=== PATIENT | female | born 1980 | race Caucasian/White ===

== ENCOUNTER 2016-08-07 09:00 | Emergency (ER) | payer OTHER ==
[2016-08-07 09:48] VITALS: BP 110/64
--- NOTE | 2016-08-07 10:23 | UC ---
Throat Pain/Nasal Xavier HPI - HPI Summary HPI Summary: complaint of cough, nasal congestion sneezing that started 3 days ago sinus pressure sore throat non productive cough more coughing and wheezing at night denies fever chills and ear pain and rash denies N/V/D, myalgias using dayquil with robitussin without relief hasn't used albuterol inhaler during this illness not taking normal medications d/t sickness - History of Current Complaint Chief Complaint: UCGeneralIllness Stated Complaint: COUGH,CONGEST,SINUS Time Seen by Provider: 08/07/16 10:18 Hx Obtained From: Patient Hx Last Menstrual Period: IUD - Allergies/Home Medications Allergies/Adverse Reactions: Allergies Allergy/AdvReac Type Severity Reaction Status Date / Time Penicillins Allergy Unknown Unknown Verified 08/07/16 09:36 Reaction Details Home Medications: Home Medications Dextromethorphan-Phenylephrine [Vicks Dayquil Cold & Flu 10-5-325 mg] 2 tab PO PRN 08/07/16 [History] GuaiFENesin DM* [Robitussin DM*] 10 ml PO PRN 08/07/16 [History] Meloxicam [Mobic] 25 mg PO BID 08/07/16 [History Confirmed 08/07/16] PMH/Surg Hx/FS Hx/Imm Hx Previously Healthy: Yes Endocrine History Of: Denies: Diabetes, Thyroid Disease Cardiovascular History Of: Denies: Cardiac Disorders, Hypertension, Pacemaker/ICD, Congestive Heart Failure Respiratory History Of: Reports: Asthma - Exercise Induced Denies: COPD GI/ History Of: Denies: Ulcer, Renal Disease Psychological History Of: Reports: Depression - Surgical History Surgical History: Yes Surgery Procedure, Year, and Place: cervical cone biopsy. tubal ligation. 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, TOPAMAX, CELEBREX Smoking Status (MU): Heavy Every Day Tobacco Smoker Type: Cigarettes Amount Used/How Often: 1/2 PPD Have You Smoked in the Last Year: Yes Household Exposure Type: Cigarettes Cessation Counseling: Patient Advised to Stop - Immunization History Most Recent Influenza Vaccination: no Review of Systems Constitutional: Negative Skin: Negative Eyes: Negative ENT: Sore Throat, Nasal Discharge Respiratory: Cough Cardiovascular: Negative Gastrointestinal: Negative Genitourinary: Negative Motor: Negative Neurovascular: Negative Musculoskeletal: Negative Neurological: Negative Psychological: Negative All Other Systems Reviewed And Are Negative: Yes Physical Exam Triage Information Reviewed: Yes Appearance: No Pain Distress, Well-Nourished, Thin Vital Signs: Initial Vital Signs Temp 98.9 F 08/07/16 09:41 Pulse 74 08/07/16 09:41 Resp 20 08/07/16 09:41 BP 110/64 08/07/16 09:41 Pulse Ox 99 08/07/16 09:41 Vital Signs Reviewed: Yes Eyes: Positive: Conjunctiva Clear ENT: Positive: Pharyngeal erythema, Nasal congestion, Nasal drainage, TMs normal. Negative: Tonsillar swelling, Tonsillar exudate Neck: Positive: No Lymphadenopathy Respiratory: Positive: Rhonchi - RLL, Wheezing. Negative: No respiratory distress, No accessory muscle use Cardiovascular: Positive: RRR, No Murmur, Pulses Normal Abdomen Description: Positive: Nontender, Soft Bowel Sounds: Positive: Present Musculoskeletal Exam: Normal Neurological: Positive: Alert Psychological Exam: Normal Skin Exam: Normal Re-Evaluation - Re-Evaluation First Eval Re-Evaluation Time: 10:53 Change: Improved Comment: less wheezing - increased air movement throughout all lung frost Throat Pain/Nasal Course/Dx - Differential Dx/Diagnosis Differential Diagnosis/HQI/PQRI: Laryngitis, Pharyngitis, URI Provider Diagnoses: asthma exacerbation Discharge - Discharge Plan Condition: Stable Disposition: HOME Prescriptions: Albuterol HFA INHALER* [Ventolin HFA Inhaler*] 2 puff INH Q4H PRN #1 mdi PRN Reason: Wheezing Azithromycin TAB* [Zithromax TAB (Z-PASCUAL) 250 mg #6 tabs] 2 tab PO .TODAY, THEN 1 DAILY #1 pascual predniSONE TAB* [Deltasone TAB*] 50 mg PO DAILY #5 tab Patient Education Materials: Asthma (ED), How to Stop Smoking (ED) Forms: *Work Release Referrals: Vitor Klein MD [Primary Care Provider] - Additional Instructions: Please take antibiotic as directed Use your albuterol inhaler every 4-6 hours when needed for wheezing, shortness of breath or uncontrolled coughing. Increase fluids and rest Take acetaminophen or ibuprofen for fever or pain Please review your discharge instructions. If your symptoms do not improve please call your primary care provider or return to urgent care.
[2016-08-07] MEDS ORDERED: Albuterol/Ipratropium NEB.SOL* Albuterol 2.5 MG/Ipratropium 0.5 MG 3 ML INH ONE (10:25)
== END 2016-08-07 11:08 | disposition home or self-care (01) ==
LOC: UCEAST 09:00
DX: J45.901 Unspecified asthma with (acute) exacerbation (principal); Z88.0 Allergy status to penicillin; F17.210 Nicotine dependence, cigarettes, uncomplicated
CPT/HCPCS: 99212; A9270-GY; G0463

== ENCOUNTER 2016-08-10 08:05 | Emergency (ER) | payer OTHER ==
[2016-08-10] MEDS ORDERED: Albuterol 2.5 MG/3 ML NEB.SOL* (0.083%) INH ONE (08:09)
[2016-08-10] MEDS ORDERED: Ipratropium 0.5MG/2.5ML NEB* 0.5 MG/2.5 ML NEB.SOLN INH ONE (08:09)
[2016-08-10 08:11] VITALS: BP 126/73
--- NOTE | 2016-08-10 09:58 | RAD ---
INDICATION: Chest pain after coughing. Dry cough for one week. Exercise-induced asthma. Tobacco use. COMPARISON: February 12, 2016 CT abdomen. TECHNIQUE: Dual energy PA and routine lateral views of the chest were obtained. REPORT: Elevated lung volumes. No alveolar consolidation, focal pulmonary lesion, pleural effusion, pneumothorax. The heart, pulmonary vasculature, and mediastinal contours are unremarkable. Unremarkable soft tissue contours and osseous structures. IMPRESSION: Elevated lung volumes suggest obstructive lung disease. No acute cardiopulmonary process evident.
--- NOTE | 2016-08-10 15:40 | UC ---
dilma Lyon Timothy, scribed for Eleonora Marvin DO on 08/10/16 at 0823 . Respiratory Complaint HPI - HPI Summary HPI Summary: Cleo Gallegos is a 36 yo female presenting to [facility] with cough and SOB since 08/04/16. She was seen 08/07/16 for asthma and bronchitis, and placed on a Z-pack, prednisone, robitussin and albuterol inhaler. Pt presents today with no improvement. She states her Sx have been worsening, and she has been unable to sleep due to coughing. She denies fever. Her Hx includes exercise induced asthma , depression, substance use, tobacco use. - History of Current Complaint Stated Complaint: COUGH,TROUBLE BREATHING Time Seen by Provider: 08/10/16 08:09 Hx Obtained From: Patient Hx Last Menstrual Period: murena Onset/Duration: Gradual Onset, Lasting Days, Still Present Timing: Constant Severity Initially: Moderate Severity Currently: Moderate Character: Cough: Nonproductive Aggravating Factors: Nothing Alleviating Factors: Nothing Associated Signs And Symptoms: Positive: Dyspnea, Wheezing. Negative: Fever, Pleuritic Chest Pain, Dizziness - Allergies/Home Medications Allergies/Adverse Reactions: Allergies Allergy/AdvReac Type Severity Reaction Status Date / Time Penicillins Allergy Unknown Unknown Verified 08/10/16 08:11 Reaction Details PMH/Surg Hx/FS Hx/Imm Hx Endocrine History Of: Denies: Diabetes, Thyroid Disease Cardiovascular History Of: Denies: Cardiac Disorders, Hypertension, Pacemaker/ICD, Congestive Heart Failure Respiratory History Of: Reports: Asthma - Exercise Induced Denies: COPD GI/ History Of: Denies: Ulcer, Renal Disease Psychological History Of: Reports: Depression - Surgical History Surgical History: Yes Surgery Procedure, Year, and Place: cervical cone biopsy. tubal ligation. 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 @ [employer] Alcohol Use: Rare Substance Use Type: None Substance Use Comment - Amount & Last Used: FROM PAIN MGT-MUSCLE RELAXER, TOPAMAX, CELEBREX Smoking Status (MU): Heavy Every Day Tobacco Smoker Type: Cigarettes Amount Used/How Often: 1/2 PPD Have You Smoked in the Last Year: Yes Household Exposure Type: Cigarettes Cessation Counseling: Counseled 3+Min - 10 Min - Immunization History Most Recent Influenza Vaccination: no Review of Systems Constitutional: Negative Skin: Negative Eyes: Negative ENT: Negative Respiratory: Shortness Of Breath, Cough Cardiovascular: Negative Gastrointestinal: Negative Genitourinary: Negative Motor: Negative Neurovascular: Negative Musculoskeletal: Negative Neurological: Negative Psychological: Negative All Other Systems Reviewed And Are Negative: Yes Physical Exam Triage Information Reviewed: Yes Appearance: Well-Appearing, No Pain Distress, Well-Nourished Vital Signs: Initial Vital Signs Temp 98.2 F 08/10/16 08:08 Pulse 79 08/10/16 08:08 Resp 20 08/10/16 08:08 BP 126/73 08/10/16 08:08 Pulse Ox 99 08/10/16 08:08 Vital Signs Reviewed: Yes Eye Exam: Normal Eyes: Positive: Conjunctiva Clear. Negative: Discharge ENT Exam: Normal ENT: Positive: Hearing grossly normal, Pharynx normal, TMs normal, Muffled/ hoarse voice. Negative: Pharyngeal erythema, Tonsillar swelling, Tonsillar exudate Neck: Positive: Supple, Nontender Respiratory: Positive: No accessory muscle use, Respiratory distress - mild, Wheezing - diffuse, all frost Cardiovascular: Positive: RRR, No Murmur Musculoskeletal Exam: Normal Neurological: Positive: Alert, Muscle Tone Normal Psychological Exam: Normal Psychological: Positive: Age Appropriate Behavior Skin Exam: Normal UC Diagnostic Evaluation - Laboratory O2 Sat by Pulse Oximetry: 99 - Radiology Xray Interpretation: No Acute Changes - Elevated lung volumes suggest obstructive lung disease. No acute cardiopulmonary process evident. Radiology Interpretation Completed By: Radiologist Re-Evaluation - Re-Evaluation First Eval Re-Evaluation Time: 10:30 Change: Improved Comment: Wheezing improved after nebulizer Tx. Respiratory Course/Dx - Course Course Of Treatment: Cleo Gallegos is a 36 yo female presenting to [facility] with SOB and cough after appearing 08/07/16 and receiving Rx for prednisone, Z-pack, robitussin, and albuterol inhaler. After clinical examination and review of her CXR indicating no acute results, Pt was counseled to stop smoking and will receive instructions on bronchitis and will be discharged. - Differential Dx/Diagnosis Differential Diagnosis/HQI/PQRI: Asthma, Bronchitis, Exacerbation Of COPD, Other - emphysema, COPD Provider Diagnoses: bronchitis Discharge - Discharge Plan Condition: Stable Disposition: HOME Prescriptions: Albuterol/Ipratropium NEB.SHERI* [Duoneb NEB.SHERI*] 1 neb INH Q4H PRN #1 box PRN Reason: Sob/Wheezing Respiratory Therapy Supplies [Nebulizer Kit/Tubing/Mout] 1 kit .SEE ORDER . DIRECTED #1 kit guaiFENesin ER TAB [Mucinex*] 600 mg PO BID PRN #1 box PRN Reason: Cough guaiFENesin/CODIEN 100MG-10MG* [Robitussin AC 100Mg-10Mg*] 5 - 10 ml PO BEDTIME PRN #100 udc MDD 10ml PRN Reason: Cough predniSONE TAB* [Deltasone TAB*] 10 mg PO DAILY #24 tab Patient Education Materials: Prednisone (By mouth), How to Stop Smoking (ED), Cigarette Smoking and Your Health (GEN), How to Use a Nebulizer (ED) Referrals: Vitor Klein MD [Primary Care Provider] - (FOLLOW UP IN 3-5 DAYS) Additional Instructions: INHALED BRONCHODILATORS:USE EVERY 4 HOURS WHILE AWAKE You have received a prescription for an inhaled bronchodilator -- a medication which stimulates the airways in the lung to dilate. This improves the flow of air in asthma, bronchitis, and emphysema. These medicines have some similarity to adrenaline, and can cause similar side effects: shakiness, racing heart, and a sense of nervousness. These side effects decrease with time. Contact your doctor if these side effects are severe. Do not over-use the medicine. Too-frequent use of the inhaler may make it ineffective. Call your doctor if the inhaler is not controlling your symptoms at the prescribed doses. COUGH-SUPPRESSANT & EXPECTORANT MEDICATION: You are to use a cough medication as needed for relief of symptoms. This medicine is a combination of an expectorant (to make the mucous thinner and more easily "coughed up") and a cough suppressant (to reduce the frequency of coughing). The cough-suppressant medicine is related to narcotics. You may experience mild nausea and sleepiness. Some patients who are very sensitive to narcotics may have stomach pain from this medicine. Taking the medicine with food reduces these side effects. Do not drive or work with machinery until you know how this medicine affects you. The expectorant should have no side effects. Iodine-containing expectorants (such as organidin) should not be taken by persons with active thyroid disease unless approved by your doctor. Call the doctor if you develop shortness of breath, hives, rash, itching, lightheadedness, or severe nausea and vomiting. EXPECTORANT MEDICATION: An expectorant medicine has been prescribed. This type of drug makes mucous thinner, helping the sinuses, nose, and bronchial tubes to remain free of pus and mucous. Expectorants make a cough less severe and more comfortable, and help infected sinuses drain. In general, antihistamines defeat the purpose of the expectorant by making mucous thicker. They should be avoided unless specifically recommended by your physician. CORTICOSTEROID MEDICATION: You have been given a medicine of the cortisone class. This medication is used to control inflammation or allergy. It is usually only given for a short period of time, until the acute process subsides. There are usually no side effects from short-term use of cortisone-like medications. Some persons feel an increased sense of well-being and are not sleepy at bedtime. Long-term use of cortisone medications is best avoided, unless required for a severe condition. If your condition does not remit, or relapses after the course of corticosteroid medication, you should consult your physician. Contact the physician if you develop lightheadedness, black or tarry stools , swelling of the legs, or significant rapid change in weight. The documentation as recorded by the dilma dia Timothy accurately reflects the service I personally performed and the decisions made by me, Eleonora Marvin DO.
== END 2016-08-10 10:44 | disposition home or self-care (01) ==
LOC: UCEAST 08:05
DX: J40 Bronchitis, not specified as acute or chronic (principal); Z88.0 Allergy status to penicillin; F17.210 Nicotine dependence, cigarettes, uncomplicated; Z71.6 Tobacco abuse counseling
CPT/HCPCS: 71020; 99212; G0463; J7644

== ENCOUNTER 2016-10-17 13:57 | Emergency (ER) | payer OTHER ==
[2016-10-17 14:07] VITALS: BP 112/52
--- NOTE | 2016-10-17 14:20 | UC ---
Camron, DoctorKristina, scribed for Abhijeet Billingsley MD on 10/17/16 at 1418 . Ear Complaint HPI - HPI Summary HPI Summary: 36 year old female arrived to [facility] c/o left ear pain beginning last night after cleaning her ear. She describes some bleeding at onset, but no bleeding since then. Pt also denies any rhinorrhea, sore throat, or changes to her hearing. She suffers from chronic pain due to dx of Degenerative Disc Disease, but denies any other pertinent PMHx. - History of Current Complaint Chief Complaint: UCEar Stated Complaint: EAR COMPLAINT Time Seen by Provider: 10/17/16 14:08 Hx Obtained From: Patient Hx Last Menstrual Period: 2 months ago Onset/Duration: Gradual Onset, Lasting Hours - since last night Severity Initially: Moderate Severity Currently: Moderate Associated Signs/Symptoms: Negative: Hearing Loss - Allergies/Home Medications Allergies/Adverse Reactions: Allergies Allergy/AdvReac Type Severity Reaction Status Date / Time Penicillins Allergy Unknown Unknown Verified 10/17/16 14:08 Reaction Details PMH/Surg Hx/FS Hx/Imm Hx Endocrine History Of: Denies: Diabetes, Thyroid Disease Cardiovascular History Of: Denies: Cardiac Disorders, Hypertension, Pacemaker/ICD, Congestive Heart Failure Respiratory History Of: Reports: Asthma - Exercise Induced Denies: COPD GI/ History Of: Denies: Ulcer, Renal Disease Psychological History Of: Reports: Depression - Surgical History Surgical History: Yes Surgery Procedure, Year, and Place: cervical cone biopsy. tubal ligation. 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, TOPAMAX, CELEBREX Smoking Status (MU): Current Every Day Smoker Type: Cigarettes Amount Used/How Often: 1/2 PPD Have You Smoked in the Last Year: Yes Household Exposure Type: Cigarettes - Immunization History Most Recent Influenza Vaccination: no Review of Systems Constitutional: Negative - fever ENT: Negative - rhinorrhea, sore throat, changes to hearing, Ear Ache - left ear pain All Other Systems Reviewed And Are Negative: Yes Physical Exam Triage Information Reviewed: Yes Appearance: Well-Appearing, No Pain Distress Vital Signs: Initial Vital Signs Temp 97.3 F 04/22/17 14:04 Pulse 53 10/17/16 14:04 Resp 18 10/17/16 14:04 BP 112/52 10/17/16 14:04 Pulse Ox 98 10/17/16 14:04 Vital Signs Reviewed: Yes Eyes: Positive: Conjunctiva Clear ENT: Positive: TMs normal - Left TM Intact, some dried blood on the floor of the TM Neck: Positive: Supple, Nontender Respiratory: Positive: Lungs clear, Normal breath sounds Cardiovascular: Positive: RRR Abdomen Description: Positive: Nontender, Soft Musculoskeletal: Positive: Strength Intact, ROM Intact Neurological Exam: Normal Psychological Exam: Normal Ear Complaint Course/Dx - Course Course Of Treatment: DISCUSSED RESULTS WITH PATIENT. RX CORTISPORIN OTIC. F/U WITH PMD. STABLE IN ED. - Differential Dx/Diagnosis Provider Diagnoses: LEFT EAR CANAL INJURY WITH TM APPEARING INTACT ON EXAM Discharge - Discharge Plan Condition: Stable Disposition: HOME Prescriptions: Neomyc/Polym/HC 1% OTIC SUSP* [Cortisporin Otic Susp 1%*] 4 drop LEFT EAR QID # 1 btl Patient Education Materials: Otitis Externa (ED), Barotrauma (ED) Referrals: Vitor Klein MD [Primary Care Provider] - Additional Instructions: FOLLOW UP WITH YOUR DOCTOR. RETURN TO THE EMERGENCY DEPARTMENT FOR ANY WORSENING OF YOUR CONDITION; PAIN, FEVER, YOU FEEL ILL OR QUESTIONS OR CONCERNS. The documentation as recorded by the Doctor dia Tahera accurately reflects the service I personally performed and the decisions made by me, Abhijeet Billingsley MD.
== END 2016-10-17 14:22 | disposition home or self-care (01) ==
LOC: UCEAST 13:57
DX: S09.91XA Unspecified injury of ear, initial encounter (principal); X58.XXXA Exposure to other specified factors, initial encounter; J45.990 Exercise induced bronchospasm; F32.9 Major depressive disorder, single episode, unspecified; F17.210 Nicotine dependence, cigarettes, uncomplicated; Z88.0 Allergy status to penicillin; G89.29 Other chronic pain
CPT/HCPCS: 99212; G0463

== ENCOUNTER 2016-11-19 10:42 | Emergency (ER) | payer OTHER ==
[2016-11-19 11:18] VITALS: BP 138/76
--- NOTE | 2016-11-19 11:33 | UC ---
Complaint Female HPI - HPI Summary HPI Summary: Urinary pain urgency frequency burning for 2 days for fevers, back pain, nausea or vomiting - History Of Current Complaint Chief Complaint: UCGU Stated Complaint: URINARY ISSUE Time Seen by Provider: 11/19/16 11:28 Hx Obtained From: Patient Hx Last Menstrual Period: tubal , mirana ?: No Onset/Duration: Sudden Onset - 2, Still Present Timing: Constant Severity Initially: Moderate Severity Currently: Moderate Pain Intensity: 6 Pain Scale Used: 0-10 Numeric Character: Burning Aggravating Factor(s): Urination Alleviating Factor(s): Nothing Associated Signs And Symptoms: Positive: Vaginal Bleeding/Discharge - "spotting right now" - Allergies/Home Medications Allergies/Adverse Reactions: Allergies Allergy/AdvReac Type Severity Reaction Status Date / Time Penicillins Allergy Unknown Unknown Verified 11/09/16 08:44 Reaction Details PMH/Surg Hx/FS Hx/Imm Hx Previously Healthy: No Endocrine History Of: Denies: Diabetes, Thyroid Disease Cardiovascular History Of: Denies: Cardiac Disorders, Hypertension, Pacemaker/ICD, Congestive Heart Failure Respiratory History Of: Reports: Asthma - Exercise Induced Denies: COPD GI/ History Of: Denies: Ulcer, Renal Disease Psychological History Of: Reports: Depression - Surgical History Surgical History: Yes Surgery Procedure, Year, and Place: cervical cone biopsy. tubal ligation. 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, TOPAMAX, CELEBREX Smoking Status (MU): Light Every Day Tobacco Smoker Type: Cigarettes Amount Used/How Often: 1/2 PPD Have You Smoked in the Last Year: Yes Household Exposure Type: Cigarettes Cessation Counseling: Patient Advised to Stop - Immunization History Most Recent Influenza Vaccination: no Review of Systems Constitutional: Negative Skin: Negative Eyes: Negative ENT: Negative Respiratory: Negative Cardiovascular: Negative Gastrointestinal: Negative Genitourinary: Dysuria, Frequency, Urgency Motor: Negative Neurovascular: Negative Musculoskeletal: Negative Neurological: Negative Psychological: Negative All Other Systems Reviewed And Are Negative: Yes Physical Exam Triage Information Reviewed: Yes Appearance: Well-Appearing, No Pain Distress, Well-Nourished Vital Signs: Initial Vital Signs Temp 97.7 F 11/19/16 11:12 Pulse 65 11/19/16 11:12 Resp 18 11/19/16 11:12 BP 138/76 11/19/16 11:12 Pulse Ox 100 11/19/16 11:12 Vital Signs Reviewed: Yes Eye Exam: Normal Eyes: Positive: Conjunctiva Clear ENT Exam: Normal ENT: Positive: Normal ENT inspection, Hearing grossly normal. Negative: Nasal congestion, Nasal drainage, Trismus, Muffled/hoarse voice Dental Exam: Normal Neck exam: Normal Neck: Positive: Supple, Nontender, No Lymphadenopathy Respiratory Exam: Normal Respiratory: Positive: Chest non-tender, Lungs clear, Normal breath sounds, No respiratory distress, No accessory muscle use Cardiovascular Exam: Normal Cardiovascular: Positive: RRR, No Murmur, Pulses Normal, Brisk Capillary Refill Abdominal Exam: Normal Abdomen Description: Positive: Nontender, No Organomegaly, Soft, Other: - some supra pubic discomfort. Negative: CVA Tenderness (R), CVA Tenderness (L) Bowel Sounds: Positive: Present Musculoskeletal Exam: Normal Musculoskeletal: Positive: Strength Intact, ROM Intact, No Edema Neurological Exam: Normal Neurological: Positive: Alert, Muscle Tone Normal Psychological Exam: Normal Skin Exam: Normal Complaint Female Dx - Course Course Of Treatment: culture urine, macrobid, pyridium, increase fluids, follow with pcp, smoking ceasation encouragement - Differential Dx/Diagnosis Differential Diagnosis/HQI/PQRI: Renal Colic, Urinary Tract Infection Provider Diagnoses: Uti, nicotine dependant Discharge - Discharge Plan Condition: Stable Disposition: HOME Prescriptions: Nitrofurantoin Monohyd Macro [Macrobid] 100 mg PO BID #20 cap Phenazopyridine TAB* [Pyridium 100 mg TAB*] 100 mg PO TID PRN #6 tab PRN Reason: urinary pain/burning Patient Education Materials: Phenazopyridine (By mouth), Urinary Tract Infection in Women (ED) Referrals: Vitor Klein MD [Primary Care Provider] - 2 Weeks
== END 2016-11-19 11:42 | disposition home or self-care (01) ==
LOC: UCEAST 10:42
DX: N39.0 Urinary tract infection, site not specified (principal); F17.210 Nicotine dependence, cigarettes, uncomplicated; J45.990 Exercise induced bronchospasm; Z88.0 Allergy status to penicillin
CPT/HCPCS: 81003; 84702; 99212; G0463

== ENCOUNTER 2017-10-02 13:33 | Emergency (ER) | payer OTHER ==
[2017-10-02 15:00] VITALS: BP 101/67
--- NOTE | 2017-10-02 15:56 | UC ---
FLU HPI - HPI Summary HPI Summary: patient states she has nausea, vomiting and diarrhea for one day with aches and chills. She denies cough or sore throat. Several family members have also been ill. - History of Current Complaint Chief Complaint: UCRespiratory Stated Complaint: FLU SYMPTOMS Time Seen by Provider: 10/02/17 14:41 Hx Obtained From: Patient Hx Last Menstrual Period: tubal/mirena ?: No Onset/Duration: Sudden Onset, Lasting Days Severity Currently: Moderate Severity Initially: Moderate Pain Intensity: 10 Associated Signs & Symptoms: Positive: Fever, Myalgia, Vomiting, Diarrhea - Risk Factors Influenza Risk Factors: Negative - Allergy/Home Medications Allergies/Adverse Reactions: Allergies Allergy/AdvReac Type Severity Reaction Status Date / Time Penicillins Allergy Unknown Verified 08/25/17 10:29 Reaction Details PMH/Surg Hx/FS Hx/Imm Hx Previously Healthy: Yes Respiratory History: Asthma Psychological History: Depression - Surgical History Surgical History: Yes Surgery Procedure, Year, and Place: cervical cone biopsy. tubal ligation. 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 Smoking Status (MU): Light Every Day Tobacco Smoker Type: Cigarettes, eCigarettes Amount Used/How Often: 1 pack every 4 days Have You Smoked in the Last Year: No Household Exposure Type: Cigarettes - Immunization History Most Recent Influenza Vaccination: no Review of Systems Constitutional: Fever Gastrointestinal: Vomiting, Diarrhea, Nausea All Other Systems Reviewed And Are Negative: Yes Physical Exam Triage Information Reviewed: Yes Appearance: No Pain Distress, Ill-Appearing, Thin Vital Signs: Initial Vital Signs Temp 97.6 F 10/02/17 14:55 Pulse 68 10/02/17 14:55 Resp 16 10/02/17 14:55 BP 101/67 10/02/17 14:55 Pulse Ox 99 10/02/17 14:55 Vital Signs Reviewed: Yes Eyes: Positive: Conjunctiva Clear ENT: Positive: Hearing grossly normal, Pharynx normal, TMs normal, Uvula midline Neck: Positive: Supple, Nontender, No Lymphadenopathy Respiratory: Positive: Chest non-tender, Lungs clear, Normal breath sounds, No respiratory distress Cardiovascular: Positive: RRR, No Murmur, Pulses Normal Abdomen Description: Positive: Nontender, No Organomegaly, Soft Bowel Sounds: Positive: Present Musculoskeletal Exam: Normal Flu Course/Dx - Course Course Of Treatment: continue oral hydration, take zofran as needed for nausea, BRAT diet, avoid alcohol, f/u PCP - Differential Dx/Diagnosis Provider Diagnoses: viral gastroenteritis Discharge - Sign-Out/Discharge Documenting (check all that apply): Discharge - Discharge Plan Condition: Stable Disposition: HOME Prescriptions: Ondansetron TAB* [Zofran 4 MG Tab*] 4 mg PO Q6H PRN #14 tab PRN Reason: Nausea Patient Education Materials: How to Stop Smoking (ED), Dehydration (ED), Gastroenteritis (ED) Forms: *Work Release Referrals: Dina Addison [employer] [Primary Care Provider] - - Billing Disposition and Condition Condition: STABLE Disposition: HOME
[2017-10-02] MEDS ORDERED: Ondansetron TAB* 4 MG PO ONE (16:02)
[2017-10-02] MEDS ORDERED: Ondansetron ODT TAB* 4 MG PO ONE (16:17)
== END 2017-10-02 16:25 | disposition home or self-care (01) ==
LOC: UCEAST 13:33
DX: A08.4 Viral intestinal infection, unspecified (principal); J45.909 Unspecified asthma, uncomplicated; F32.9 Major depressive disorder, single episode, unspecified; Z88.0 Allergy status to penicillin; F17.210 Nicotine dependence, cigarettes, uncomplicated
CPT/HCPCS: 87502; 99212; A9270-GY; G0463